=== PATIENT | male | born 1960 | race African-American/Black ===

== ENCOUNTER 2021-02-03 04:32 | Emergency (ER) | payer BC, SELFPAY ==
[2021-02-03 04:34] VITALS: BP 138/80; PULSE 62; RESP 16; TEMP 36.7; O2SAT 97; BMI 32.1
[2021-02-03 05:42] LABS: MANUAL DIFF FLAG NO
[2021-02-03 05:43] LABS: Basophils Percent Auto 0.6 % (0-2); Eosinophils Absolute Auto 0.2 X10*3/uL (0.0-0.4); Hematocrit 41.5 % (42-52); Hemoglobin 12.8 g/dl (14.0-18.0); Lymphocytes Absolute Auto 2.4 X10*3/uL (1.2-4.9); Lymphocytes Percent Auto 51.3 % (20-40); Mean Corpuscular HGB Conc 30.8 g/dl (31.0-36.0); Mean Corpuscular Hemoglobin 22.9 pg (27.0-33.0); Mean Corpuscular Volume 74.1 fL (80-98); Mean Platelet Volume 10.2 fL (9.4-12.4); Monocytes Absolute Auto 0.5 X10*3/uL (0.1-1.2); Monocytes Percent Auto 9.9 % (2-11); Neutrophils Absolute Auto 1.6 X10*3/uL (2.0-8.3); Neutrophils Percent Auto 34.2 % (45-73); Platelet Count 185 X10*3/uL (160-400); Red Cell Distribution Width 14.6 % (11.0-16.0); White Blood Count 4.8 X10*3/uL (4.8-10.8)
--- NOTE | 2021-02-03 05:45 | PC.NURSE ---
pt labs drawn with no complications. pt during this time states he now has numbness to the left foot. pt walks with a steady gait. denies chest pain or shortness of breath. pt is alert and orientedx3, skin pink warm and dry. palpable pulses to the left foot, foot is warm and pt is able to wiggle his toes. charge is aware of this.
[2021-02-03 05:57] LABS: INTERNATIONAL NORM RATIO 1.1 (0.9-1.1); Prothrombin Time 12.7 SEC (9.9-13.0)
[2021-02-03 06:05] LABS: Alanine Aminotransferase 17 U/L (0-40); Albumin Level 4.2 g/dL (3.5-5.0); Alkaline Phosphatase 85 U/L (39-117); Anion Gap 13 (12-20); Aspartate Amino Transferase 17 U/L (5-37); Bilirubin Total < 0.2 mg/dL (0.0-1.0); Blood Urea Nitrogen 12 mg/dL (9-16); Calcium 9.6 mg/dL (8.4-10.2); Carbon Dioxide 29 mmol/L (22-29); Chloride 103 mmol/L (96-108); Creatinine Clr Calc Pharmacy 93.1; Estimated Glomerular Filt Rate > 60; Glucose Random 104 mg/dL (60-115); Potassium 4.7 mmol/L (3.3-5.1); Sodium 140 mmol/L (135-145); Total Protein 7.9 g/dL (6.5-8.0)
[2021-02-03 06:32] LABS: D Dimer < 200 NG/ML
--- NOTE | 2021-02-03 06:53 | ED.EXTPRO ---
HPI - Extremity Problem General Chief complaint: Extremity Problem Stated complaint: R/O DVT Time Seen by Provider: 02/03/21 06:22 Source: patient Mode of arrival: ambulatory Limitations: no limitations History of Present Illness HPI Narrative: Patient with history of DVT on Eliquis was doing elliptical exercise few weeks ago for last 3 weeks complaining of increased pain in the left knee with swelling behind the knee no calf pain no shortness of breath no leg swelling Related Data Previous Rx's Medication Instructions Recorded tramadol 50 mg tablet 50 mg PO Q6H PRN #20 tab 02/03/21 Allergies Allergy/AdvReac Type Severity Reaction Status Date / Time No Known Allergies Allergy Verified 02/03/21 04:41 Review of Systems Review of Systems: Yes all other systems are reviewed and are negative [facility] Past Medical History Medical History Blood clotting disorder Social History Social History Advance Directives: No Advance Directives Information Provided: Yes Physical Exam Vital Signs: Vital Signs: Last Vital Signs Temp 98.0 F 02/03/21 04:34 Pulse 62 02/03/21 04:34 Resp 16 02/03/21 04:34 BP 138/80 02/03/21 04:34 Pulse Ox 97 02/03/21 04:34 Body Mass Index 32.1 Appearance: Alert. Oriented X3. No acute distress. Neck: Normal inspection. Neck supple. CVS: Normal heart rate and rhythm. Pulses normal. Respiratory: No respiratory distress. Equal air entry bilateral, Abdomen: Soft and nontender. Skin: Skin warm and dry. Normal skin color. Normal skin turgor. Extremities: No lower extremity edema. No calf tenderness, left knee: Diffuse tenderness with slight joint effusion crepitation and palpitation limited flexion to 90 degrees Neuro: Oriented X 3. MDM - Extremity (Nontraumatic) MDM Narrative Medical decision making narrative: Patient on Eliquis for DVT in left knee Charisma sign is negative no calf tenderness D-dimer negative clinically patient has left knee arthritis Romulo wrap was applied will discharge patient home on tramadol Lab Data Result diagrams: 02/03/21 05:38 02/03/21 05:38 Labs: Lab Results 02/03/21 02/03/21 02/03/21 Range/Units 05:38 05:38 05:38 WBC 4.8 (4.8-10.8) X10*3/uL RBC 5.60 (4.60-5.80) X10*6/uL Hgb 12.8 L (14.0-18.0) g/dl Hct 41.5 L (42-52) % MCV 74.1 L (80-98) fL MCH 22.9 L (27.0-33.0) pg MCHC 30.8 L (31.0-36.0) g/dl RDW 14.6 (11.0-16.0) % Plt Count 185 (160-400) X10*3/uL MPV 10.2 (9.4-12.4) fL Immature Gran % (Auto) 0.0 (0.0-0.4) % Neut % (Auto) 34.2 L (45-73) % Lymph % (Auto) 51.3 H (20-40) % Stanton % (Auto) 9.9 (2-11) % Eos % (Auto) 4.0 (0-4) % Baso % (Auto) 0.6 (0-2) % Lymph # (Auto) 2.4 (1.2-4.9) X10*3/uL Stanton # (Auto) 0.5 (0.1-1.2) X10*3/uL Eos # (Auto) 0.2 (0.0-0.4) X10*3/uL Baso # (Auto) 0.0 (0.0-0.2) X10*3/uL Abs Immat Gran (auto) 0.00 (0.00-0.03) X10*3/uL Absolute Neuts (auto) 1.6 L (2.0-8.3) X10*3/uL Absolute Nucleated RBC 0.000 (0.0-0.012) X10*3/uL Nucleated RBC % (auto) 0.0 (0.0-0.2) /100WBC PT 12.7 (9.9-13.0) SEC INR 1.1 (0.9-1.1) D-Dimer < 200 NG/ML Sodium 140 (135-145) mmol/L Potassium 4.7 (3.3-5.1) mmol/L Chloride 103 (96-108) mmol/L Carbon Dioxide 29 (22-29) mmol/L Anion Gap 13 (12-20) BUN 12 (9-16) mg/dL Creatinine 1.05 (0.5-1.4) mg/dL Estim Creat Clear Calc 93.1 Estimated GFR > 60 Random Glucose 104 (60-115) mg/dL Calcium 9.6 (8.4-10.2) mg/dL Total Bilirubin < 0.2 (0.0-1.0) mg/dL AST 17 (5-37) U/L ALT 17 (0-40) U/L Alkaline Phosphatase 85 (39-117) U/L Total Protein 7.9 (6.5-8.0) g/dL Albumin 4.2 (3.5-5.0) g/dL Discharge Plan Discharge Clinical Impression: Arthritis of knee, left Patient Disposition: Home, Self-Care Instructions: Osteoarthritis (ED) Additional Instructions: Rest to your left knee Wear knee brace/Romulo wrap Pain medication as prescribed Follow with PCP if not better Prescriptions: New tramadol 50 mg tablet 50 mg PO Q6H PRN (Reason: pain) Qty: 20 RF: 0
== END 2021-02-03 07:16 | disposition home or self-care (01) ==
PROVIDERS: Student in an Organized Health Care Education/Training Program; Emergency Provider Internal Medicine
DX: M17.12 Unilateral primary osteoarthritis, left knee (principal); R60.0 Localized edema; Z79.01 Long term (current) use of anticoagulants; Z79.899 Other long term (current) drug therapy
CPT/HCPCS: 36415; 80053; 85025; 85379; 85610; 99283

== ENCOUNTER 2021-03-25 10:50 | Emergency (ER) | payer BC, SELFPAY ==
--- NOTE | ~2021-03-25 | XR_ITS ---
EXAMINATION: XR LUMBOSACRAL SPINE CLINICAL INFORMATION: Low back pain. Mild urinary incontinence. Pre-MRI evaluation. COMPARISON: None TECHNIQUE: Three views of the lumbosacral spine. FINDINGS: There is normal lumbar segmentation with 5 nonrib-bearing lumbar vertebrae of normal height and normal lumbar lordosis. There is no lumbar vertebral compression, spondylolisthesis, destructive process, or erosive changes. Mild anterior vertebral spurring is present at L4 and L5. There is borderline degenerative disc change L4-L5. The SI joints and visualized sacrum are unremarkable. There is no metallic foreign body in the [id number]. Bowel gas is unremarkable. XR/XR lumbar spine 2-3V IMPRESSION: 1. No metallic foreign body. 2. No vertebral compression, spondylolisthesis, or destructive process.
--- NOTE | ~2021-03-25 | MR_ITS ---
MR LUMBAR SPINE WITHOUT IV CONTRAST CLINICAL INFORMATION: Back pain with urinary incontinence. COMPARISON: Lumbar spine radiographs 03/25/2021. TECHNIQUE: MRI of the lumbar spine was obtained using routine sequences without contrast. FINDINGS: There are 5 nonrib-bearing lumbar-type vertebral bodies. Lumbar alignment is normal. The vertebral body heights are maintained throughout the lumbar spine. There is mild chronic upper endplate height loss at T12 and L1. There is mild disc volume loss and there is disc desiccation at L3-L4 and L4-L5. Mild Modic type I endplate signal changes at L3-L4 and L4-L5. No additional bone marrow edema. No acute fractures. The conus terminates at the L1 level. Hypertrophic degenerative changes across the SI joints bilaterally. There is a fatty filum terminale. No significant extraspinal soft tissue findings. L1-L2: Disc contour is normal. No central canal stenosis and no foraminal stenosis. L2-L3: Disc contour is normal. No central canal stenosis and no foraminal stenosis. L3-L4: There is a far right lateral disc protrusion that results in moderate right-sided foraminal stenosis and mass effect on the extraforaminal right L3 nerve root. There is no central canal stenosis and there is no left foraminal stenosis. L4-L5: There is a shallow left paracentral disc protrusion that results in mass effect on the traversing left L5 nerve root within the left subarticular zone. Mild narrowing of the central canal. Mild bilateral foraminal encroachment. L5-S1: Diffuse annular disc bulges in part disc osteophyte and moderate bilateral facet arthropathy. There is no central canal stenosis. Mild to moderate bilateral foraminal stenosis with mild mass effect on the exiting L5 nerve roots MR/MR lumbar spine wo con IMPRESSION: - At L3-L4, a far right lateral disc protrusion results in moderate right-sided foraminal stenosis and mass effect on the extraforaminal right L3 nerve root. - At L4-L5, there is a shallow left paracentral disc protrusion that results in mass effect on the traversing left L5 nerve root within the left subarticular zone. - At L5-S1, spondylitic changes result in mild to moderate bilateral foraminal stenosis with mild mass effect on the exiting L5 nerve roots bilaterally. - There is no severe central canal stenosis within the lumbar spine.
[2021-03-25 11:52] VITALS: BP 149/93; PULSE 72; RESP 18; TEMP 36.8; O2SAT 99; BMI 32.8
[2021-03-25 12:42] LABS: Appearance Urine CLEAR; Color Urine YELLOW; Glucose Urine UA NEG (NEG); Leukocyte Esterase Urine NEG (NEG); Nitrite Urine NEG (NEG); PH 7.5 (5.0-8.0); Urine Blood NEG (NEG); Urine Ketones NEG (NEG); Urine Protein NEG (NEG-TRACE)
[2021-03-25] MEDS: traMADoL HCL 50 MG TABLET PO (14:03)
[2021-03-25] MEDS: predniSONE 20 MG TABLET 60 MG PO (14:03)
--- NOTE | 2021-03-25 14:19 | ED_ITS ---
HPI - General Adult General Chief complaint: Back Pain/Injury <OFELIA Doss - Last Filed: 03/25/21 17:17> Stated complaint: Lower back pain/incontinence <OFELIA Doss - Last Filed: 03/25/21 17:17> Time Seen by Provider: 03/25/21 12:50 <OFELIA Doss - Last Filed: 03/25/21 17:17> Source: patient <OFELIA Doss - Last Filed: 03/25/21 17:17> Mode of arrival: ambulatory <OFELIA Doss - Last Filed: 03/25/21 17:17> Limitations: no limitations <OFELIA Doss Last Filed: 03/25/21 17:17> History of Present Illness HPI narrative: 60-year-old male with history of chronic back pain arthritis presents to ED for worsening lower back pain for 1 week with some mild urinary incontinence the past 3 days. Patient denies any fever, chills, history of HIV, history of IV drug use, or being immunocompromised. Patient describe urinary incontinence sometime not knowing when he is about to pee and urinate on himself. Other times he has sensation and knows he is about to urinate but cannot reach the bathroom in time and then has dribbling on himself. Patient denies any abdominal pain, flank pain, fever, chills, dysuria, hematuria, nausea, vomiting, or testicular pain. <OFELIA Doss Last Filed: 03/25/21 17:17> Related Data Home medications: Previous Rx's Medication Instructions Recorded tramadol 50 mg tablet 50 mg PO Q6H PRN #20 tab 02/03/21 prednisone 20 mg tablet 60 mg PO DAILY 5 Days #15 tab 03/25/21 tramadol 50 mg tablet 50 mg PO TID PRN 3 Days #9 tab 03/25/21 <OFELIA Doss Last Filed: 03/25/21 17:17> Allergies/adverse reactions: Allergies Allergy/AdvReac Type Severity Reaction Status Date / Time No Known Allergies Allergy Verified 02/03/21 04:41 <OFELIA Doss Last Filed: 03/25/21 17:17> Review of Systems Review of Systems: Yes all other systems are reviewed and are negative <OFELIA Doss - Last Filed: 03/25/21 17:17> Constitutional: Constitutional: Reports as per HPI and Reports no additional constitutional complaints <OFELIA Doss - Last Filed: 03/25/21 17:17> Eyes: Eyes: Reports as per HPI and Reports no additional eye complaints <OFELIA Doss - Last Filed: 03/25/21 17:17> ENT: Reports system reviewed and no additional complaints, except as documented and Reports as per HPI <OFELIA Doss - Last Filed: 03/25/21 17:17> Cardiovascular: Cardiovascular: Reports as per HPI and Reports no additional cardiovascular complaints <OFELIA Doss - Last Filed: 03/25/21 17:17> Respiratory: Respiratory: Reports as per HPI and Reports no additional respiratory complaints <OFELIA Doss - Last Filed: 03/25/21 17:17> Gastrointestinal: Gastrointestinal: Reports as per HPI and Reports no additional gastrointestinal complaints <OFELIA Doss - Last Filed: 03/25/21 17:17> Genitourinary: Genitourinary: Reports no additional male genitourinary complaints, Reports as per HPI and Reports urinary incontinence (mild) <OFELIA Doss - Last Filed: 03/25/21 17:17> Musculoskeletal: Musculoskeletal: Reports no additional musculoskeletal complaints, Reports as per HPI and Reports back pain <OFELIA Doss - Last Filed: 03/25/21 17:17> Integumentary/Breasts: Skin/Breast: Reports system reviewed and no additional complaints, except as docu and Reports as per HPI <OFELIA Doss - Last Filed: 03/25/21 17:17> Neurologic: Reports system reviewed and no additional complaints, except as documented and Reports as per HPI <OFELIA Doss - Last Filed: 03/25/21 17:17> Psychiatric: Psychiatric: Reports no additional psychiatric complaints and Reports as per HPI <OFELIA Doss - Last Filed: 03/25/21 17:17> PMFSH Past Medical History Medical History: Medical History (Updated 03/25/21 @ 16:40 by OFELIA Doss) Blood clotting disorder HLD (hyperlipidemia) <OFELIA Doss - Last Filed: 03/25/21 17:17> Social History Social History: Social History Advance Directives: No Advance Directives Information Provided: No <OFELIA Doss - Last Filed: 03/25/21 17:17> Physical Exam Vital Signs: Vital Signs: Last Vital Signs Temp 98.4 F 03/25/21 16:00 Pulse 78 03/25/21 16:00 Resp 18 03/25/21 16:00 BP 146/70 H 03/25/21 16:00 Pulse Ox 98 03/25/21 16:00 Body Mass Index 32.8 <OFELIA Doss - Last Filed: 03/25/21 17:17> Vital Signs: Last Vital Signs Temp 98.4 F 03/25/21 16:00 Pulse 78 03/25/21 16:00 Resp 18 03/25/21 16:00 BP 146/70 H 03/25/21 16:00 Pulse Ox 98 03/25/21 16:00 Body Mass Index 32.8 <Guilherme Morrison MD - Last Filed: 03/25/21 16:35> Const: General: cooperative, healthy appearing, comfortable, no acute distress, well developed, alert, awake and Physically active; No acute distress <OFELIA Doss - Last Filed: 03/25/21 17:17> Orientation/consciousness: patient oriented x3 <OFELIA Doss - Last Filed: 03/25/21 17:17> HENMT: Head: Yes normal to inspection, Yes No palpable skull fracture present, Yes normocephalic, Yes atraumatic and No abrasion <OFELIA Doss - Last Filed: 03/25/21 17:17> Eyes: General: appearance normal, both eyes and all related structures <OFELIA Doss - Last Filed: 03/25/21 17:17> Neck: Neck: Yes normal visual inspection, Yes full ROM, Yes no lymphadenopathy, Yes no meningeal signs, Yes trachea midline, Yes supple, No anterior neck swelling and No tender <OFELIA Doss - Last Filed: 03/25/21 17:17> Chest: Chest palpation & inspection: normal inspection of the chest and normal palpation of entire chest wall <OFELIA Doss Last Filed: 03/25/21 17:17> Resp: Effort & Inspection: normal respiratory effort and able to speak in complete sentences <OFELIA Doss Last Filed: 03/25/21 17:17> Auscultation: clear to auscultation bilaterally <OFELIA Doss Last Filed: 03/25/21 17:17> Cardio: Jugular venous distension: no JVD <OFELIA Doss Last Filed: 03/25/21 17:17> Heart sounds: S1 normal heart sound present and S2 normal heart sound present <OFELIA Doss Last Filed: 03/25/21 17:17> GI: Inspection: Yes normal to inspection and No abdominal wall ecchymosis <OFELIA Doss Last Filed: 03/25/21 17:17> Palpation (GI): Soft to palpation, not firm, nontender, no guarding and not rigid <OFELIA Doss - Last Filed: 03/25/21 17:17> : General: Yes no CVA tenderness <OFELIA Doss Last Filed: 03/25/21 17:17> Back/Spine/Pelvis: Other: Rectal exam positive for good anal tone 1 finger placed in the rectum. Negative for saddle anesthesia. Patient has sensation in perineum, testicles, and pubic area. <OFELIA Doss Last Filed: 03/25/21 17:17> Back: no CVA tenderness and back tenderness (Positive for lumbar tenderness on palpation.) <OFELIA Dsos - Last Filed: 03/25/21 17:17> Skin: General skin exam: no rashes or lesions noted and elasticity normal <OFELIA Doss Last Filed: 03/25/21 17:17> Neuro: General: patient oriented x3, gait normal, no meningeal signs and CN's II-XI intact bilaterally <OFELIA Doss Last Filed: 03/25/21 17:17> Cranial nerves: Yes CN's II-XII intact bilaterally <OFELIA Doss Last Filed: 03/25/21 17:17> Extrem: General: Yes normal to inspection and Yes full ROM <OFELIA Doss - Last Filed: 03/25/21 17:17> Psych: Appearance: grossly normal, well kempt and not disheveled <OFELIA Doss - Last Filed: 03/25/21 17:17> Course Course Course Narrative: Pain meds ordered for patient. Lumbar x-ray ordered. Physical exam unlikely cord compression but due to patient stated urinary continence for the past 3 days with worsening back pain for the past week patient will have MRI after x-ray. Not suspecting epidural abscess. Patient denies any history of IV drug use, HIV, or any immunocompromised state. Patient vital signs are normal and negative for signs of infection. <OFELIA Doss - Last Filed: 03/25/21 17:17> Reevaluation(s) Reevaluation #1: Lumbar x-ray shows some denies arthritis waiting for MRI of lumbar spine. <OFELIA Doss - Last Filed: 03/25/21 17:17> Time: 14:26 <OFELIA Doss - Last Filed: 03/25/21 17:17> Reevaluation #2: Discussed with OFELIA Page agree with plan and reviewed MRI <Guilherme Morrison MD - Last Filed: 03/25/21 16:35> Time: 16:35 <Guilherme Morrison MD - Last Filed: 03/25/21 16:35> Reevaluation #3: MRI negative for cord compression. MRI just shows disc herniations pressing on a nerve. Patient states pain improved with tramadol and steroids. Patient given copy of MRI report to follow up with primary care provider to see patient should be referred to physical therapy, pain management, or spinal surgeon. Patient walked around the ER. Patient has normal gait. Back pain mostly when he sits still for long time. <OFELIA Doss - Last Filed: 03/25/21 17:17> Time: 16:38 <OFELIA Doss - Last Filed: 03/25/21 17:17> Medical Decision Making MDM Narrative Medical decision making narrative: Lumbar disc herniation <OFELIA Doss - Last Filed: 03/25/21 17:17> Lab Data Labs: Lab Results 03/25/21 Range/Units 12:23 Urine Color YELLOW Urine Appearance CLEAR Urine pH 7.5 (5.0-8.0) Ur Specific [place] 1.010 (1.005-1.025) Urine Protein NEG (NEG-TRACE) MG/DL Urine Glucose (UA) NEG (NEG) MG/DL Urine Ketones NEG (NEG) MG/DL Urine Blood NEG (NEG) Urine Nitrite NEG (NEG) Ur Leukocyte Esterase NEG (NEG) <OFELIA Doss - Last Filed: 03/25/21 17:17> Lab Results 03/25/21 Range/Units 12:23 Urine Color YELLOW Urine Appearance CLEAR Urine pH 7.5 (5.0-8.0) Ur Specific [place] 1.010 (1.005-1.025) Urine Protein NEG (NEG-TRACE) MG/DL Urine Glucose (UA) NEG (NEG) MG/DL Urine Ketones NEG (NEG) MG/DL Urine Blood NEG (NEG) Urine Nitrite NEG (NEG) Ur Leukocyte Esterase NEG (NEG) <Guilherme Morrison MD - Last Filed: 03/25/21 16:35> Discharge Plan Discharge Clinical Impression: Herniated lumbar intervertebral disc, Lumbar radiculopathy <OFELIA Doss - Last Filed: 03/25/21 17:17> Patient Disposition: Home, Self-Care <OFELIA Doss - Last Filed: 03/25/21 17:17> Instructions: Lumbar Disc Herniation (ED), Lumbar Radiculopathy (ED) <OFELIA Doss - Last Filed: 03/25/21 17:17> Additional Instructions: The MRI came back negative for cord compression. MRI does shows lumbar disc herniations pressing on your nerves which is causing the pain. Return to the ED for any abdominal pain, nausea, vomiting, fever, chills, paralysis of lower extremities, worsening urinary incontinence, bowel incontinence, inability to walk, tingling in the extremities, or any other concerning symptoms. Please show a primary care provider MRI report. <OFELIA Doss - Last Filed: 03/25/21 17:17> Prescriptions: New tramadol 50 mg tablet 50 mg PO TID PRN (Reason: pain) 3 Days Qty: 9 RF: 0 prednisone 20 mg tablet 60 mg PO DAILY 5 Days Qty: 15 RF: 0 No Action tramadol 50 mg tablet 50 mg PO Q6H PRN (Reason: pain) Qty: 20 RF: 0 <OFELIA Doss - Last Filed: 03/25/21 17:17> Stand Alone Forms: Work/School Release <OFELIA Doss - Last Filed: 03/25/21 17:17> Interventions: ED Discharge Assessment Last Done: 03/25/21 16:54 <OFELIA Dsos - Last Filed: 03/25/21 17:17> Discharge Date/Time: 03/25/21 16:55 <OFELIA Doss - Last Filed: 03/25/21 17:17> Print Language: Marshallese <OFELIA Doss - Last Filed: 03/25/21 17:17>
--- NOTE | 2021-03-25 14:24 | PC.NURSE ---
ASSISTED PA WITH RECTAL EXAM. PT TOLERATED PROCEDURE WELL.
[2021-03-25 15:36] VITALS: RESP 18
[2021-03-25 16:00] VITALS: BP 146/70; PULSE 78; RESP 18; TEMP 36.9; O2SAT 98
== END 2021-03-25 16:55 | disposition home or self-care (01) ==
PROVIDERS: Emergency Provider Emergency Medicine
DX: M51.16 Intervertebral disc disorders with radiculopathy, lumbar region (principal); M54.50 Low back pain, unspecified
CPT/HCPCS: 72100; 72148; 81003; 99284; 99285

== ENCOUNTER 2025-01-12 09:09 | Outpatient (AMB) | payer BC, SELFPAY ==
--- NOTE | 2025-01-12 09:40 | MHC.OFFVIS ---
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 He denies smoking and is prediabetic, with no history of hypertension. 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 It is noted more so in right leg. Patient denies any previous venous surgery or injections. Patient denies any history of has a prior history of DVT on the right lower extremity dating back to 2003. He also has a family history of clotting disorders. He is being maintained on Eliquis Patient denies any history of phlebitis. Trial of compression includes - [id number] They now present for vascular evaluation regarding their varicose veins. [facility] Medical History HLD (hyperlipidemia) Blood clotting disorder Review of Systems Const Reports as per HPI ENT Reports no additional complaints Card Denies chest pain, Denies chest pain at rest and Denies chest pain with activity Resp Denies chest congestion and Denies cough GI Reports no additional complaints Musc Details: pain over varicosities, aching of lower extremities, swelling, cramping, heaviness and tiredness, itching Denies abnormal gait Skin/Breast Reports pruritus and Denies wounds Neuro Reports no additional complaints and Denies abnormal gait Psych Denies no additional complaints Physical Exam Vital Signs: BMI result Body Mass Index 32.1 Const General: cooperative, healthy appearing and comfortable Orientation/consciousness: oriented to person, oriented to place and oriented to time Neck Carotids: no bruits Chest Chest palpation & inspection: normal inspection of the chest and normal palpation of entire chest wall Resp Effort & Inspection: normal respiratory effort and able to speak in complete sentences Cardio Rate: regular rate Heart sounds: S1 normal heart sound present and S2 normal heart sound present Peripheral pulses: Peripheral pulses 2+ throughout GI Inspection: Yes normal to inspection Skin Other: +2 edema, large rope-like varicosities greater than 4 mm CEAP Classification C4 - skin color changes Ep - Etiology Primary As - superficial veins P - reflux General skin exam: dry skin Neuro General: oriented to person, oriented to place and oriented to time Extrem Right lower extremity: full ROM, normal capillary refill and edema Left lower extremity: full ROM, normal capillary refill and edema Psych Mental Status: mental status grossly normal Assessment & Plan Assessment & Plan (1) Varicose veins of right lower extremity with inflammation: Code(s): I83.11 - Varicose veins of right lower extremity with inflammation Category: Medical Plan: In short, the patient has evidence of venous insufficiency. I have discussed the pathophysiology with the patient. In addition I have provided informational material regarding venous disease to the patient. We have discussed conservative measures including compression, elevation, and exercise. I have also provided a handout regarding appropriate use of compression stockings and where to purchase good compression stockings as well. I have taken the liberty of ordering venous insufficiency testing with the patient. They will follow up with me after testing. The patient had an opportunity to ask questions regarding the treatment plan. All questions were answered. Imaging studies, laboratory studies and physical exam results were discussed and reviewed in detail. No major barriers to understanding were identified. The patient expressed understanding and agreement with the above treatment plan. The patient is aware they should contact our office by phone for worsening of the current condition or the appearance of new symptoms. Thank you for allowing me to participate in the vascular care of this patient. If you have any questions or concerns regarding the treatment for the above condition please do not hesitate to contact me. The office telephone contact is [phone]. This note is constructed using voice recognition software. While every effort has been made to ensure accuracy, ergonomic specialist errors may have been included. Thank you for allowing me to participate in the care of your patient. Yours sincerely, Jorge Martin MD, FACS, R.P.V.I. Plan See op note Orders: Orders US venous duplex LE BI Today I83.11 - Varicose veins of right lower extremity with inflammation Coding Level of Care Code New Pt Level 4 (03190) Complex EM visit Add On G2211 Diagnoses Varicose veins of right lower extremity with inflammation I83.11
[2025-01-12 09:41] VITALS: BMI 32.1
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
--- OUTSIDE RECORDS SUMMARY | 2025-01-12 10:31 | XMS_ITS ---
Author Name [facility] Organization Unknown Encounters Encounter Type Encounter Reason Primary Diagnosis Location Date Ambulatory [facility] 01/03/2025 Ambulatory [facility] 10/28/2024 Ambulatory [facility] 07/27/2024 Ambulatory [facility] 06/30/2024 Ambulatory [facility] 06/30/2024 Ambulatory [facility] 06/23/2024 Ambulatory [facility] 06/18/2024 Ambulatory [facility] 06/18/2024 Ambulatory [facility] 06/18/2024 Ambulatory [facility] 06/18/2024 Ambulatory [facility] 06/18/2024 Ambulatory [facility] 06/18/2024 Ambulatory [facility] 06/18/2024 Ambulatory [facility] 06/18/2024 Ambulatory [facility] 06/18/2024 Ambulatory [facility] 06/16/2024 Ambulatory [facility] 06/16/2024 Ambulatory [facility] 06/16/2024 Ambulatory [facility] 06/16/2024 Care Team Organization Name Specialty Phone Email Start Date End [facility] 08/02/2024 [facility] 03/18/2024 025 [facility] Yumiko Ramos Primary Care 03/11/2022 12/21/2023
== END 2025-01-12 09:56 | disposition home or self-care (01) ==
LOC: HO.HVS 09:10
PROVIDERS: Visit Provider Surgery Vascular Surgery
DX: I83.11 Varicose veins of right lower extremity with inflammation (principal)
CPT/HCPCS: 99204

== ENCOUNTER 2025-02-27 08:17 | Outpatient (REF) | payer BC, SELFPAY ==
--- NOTE | ~2025-02-27 | US_ITS ---
EXAMINATION: US LOWER EXTREMITY VENOUS (REFLUX EXAM), BILATERAL CLINICAL INFORMATION: I 83.11. Varices. COMPARISON: None. TECHNIQUE: Color flow triplex imaging and compression Doppler was performed to evaluate both the deep and the superficial systems bilaterally. To evaluate the superficial system, the examination was performed in the upright position. Color-flow Doppler ultrasound and compression ultrasound were utilized. In addition, maneuvers were utilized to demonstrate reflux. FINDINGS: 1. DEEP VENOUS ULTRASOUND OF THE RIGHT LOWER EXTREMITY: Common Femoral Vein: Compressible, normal respiratory variation and augmented flow. Femoral Vein: Compressible, normal color flow and augmentation. Popliteal Vein: Compressible, normal augmentation. Deep Reflux: There is no evidence of reflux in the deep system in either the common femoral vein, superficial femoral or the popliteal vein. There is no evidence of a Rinaldi's cyst. 2. SUPERFICIAL ULTRASOUND WITH DOPPLER OF RIGHT LOWER EXTREMITY: GREAT SAPHENOUS VEIN: Saphenofemoral Junction: 0.8 cm; Reflux: 0 ms Proximal Thigh: 0.5 cm; Reflux: 0 ms Mid Thigh: 0.5 cm; Reflux: 0 ms Distal Thigh: 0.4 cm; Reflux: 0 ms At Knee: 0.3 cm; Reflux: 0 ms Proximal Calf: 0.3 cm; Reflux: 0 ms Mid Calf: 0.2 cm; Reflux: 0 ms Distal Calf: 0.2 cm; Reflux: 0 ms DUPLICATED MEDIAL GREAT SAPHENOUS VEIN: Diameter: None imaged Reflux: NA DUPLICATED LATERAL GREAT SAPHENOUS VEIN: Diameter: None imaged Reflux: NA SMALL SAPHENOUS VEIN: Saphenopopliteal Junction: 0.3 cm; Reflux: 0 ms Proximal: 0.2 cm; Reflux: 0 ms Distal: 0.3 cm; Reflux: 0 ms VEIN OF GIACOMINI: Size: 0.3 cm. Reflux: NA PERFORATORS: Location: Small saphenous vein, mid segment. Proximal, mid and distal calf. Size: 0.1-0.3 cm. Reflux: NA VARICOSITIES: Location: Small saphenous vein mid segment. Proximal calf. Size: 0.3-0.4 cm. Reflux: NA 3. DEEP VENOUS ULTRASOUND OF THE LEFT LOWER EXTREMITY: Common Femoral Vein: Compressible, normal respiratory variation and augmented flow. Femoral Vein: Compressible, normal color flow and augmentation. Popliteal Vein: Compressible, normal augmentation. Deep Reflux: There is no evidence of reflux in the deep system in either the common femoral vein, superficial femoral or the popliteal vein. There is no evidence of a Rinaldi's cyst. 4. SUPERFICIAL ULTRASOUND WITH DOPPLER OF LEFT LOWER EXTREMITY: GREAT SAPHENOUS VEIN: Saphenofemoral Junction: 0.8 cm; Reflux: 0 ms Proximal Thigh: 0.3 cm; Reflux: 0 ms Mid Thigh: 0.2 cm; Reflux: 0 ms Distal Thigh: 0.3 cm; Reflux: 0 ms At Knee: 0.3 cm; Reflux: 0 ms Proximal Calf: 0.13 cm; Reflux: 0 ms Mid Calf: 0.08 cm; Reflux: 0 ms Distal Calf: 0.1 cm; Reflux: 0 ms DUPLICATED MEDIAL GREAT SAPHENOUS VEIN: Diameter: None imaged Reflux: NA DUPLICATED LATERAL GREAT SAPHENOUS VEIN: Diameter: None imaged. Reflux: NA SMALL SAPHENOUS VEIN: Saphenopopliteal Junction: 0.3 cm; Reflux: 0 ms Proximal: 0.2 cm; Reflux: 0 ms Distal: 0.2 cm; Reflux: 0 ms VEIN OF GIACOMINI: Size: NA Reflux: NA PERFORATORS: Location: Proximal and Mid calf. Distal thigh. Size: 0.1-0.2 cm. Reflux: NA VARICOSITIES: Location: Proximal calf. Size: 0.3-0.4 cm. Reflux: NA US/US venous insuf bilat IMPRESSION: Right: No venous insufficiency. Perforators and varices without reflux. Left: No venous insufficiency. Perforators and varices without reflux. Electronically signed by: Esteban Alegria MD 02/27/2025 10:11 AM EDT
== END 2025-02-27 08:18 | disposition home or self-care (01) ==
LOC: HO.US 08:17
PROVIDERS: PCP Internal Medicine; Visit Provider Surgery Vascular Surgery
DX: I83.11 Varicose veins of right lower extremity with inflammation (principal)
CPT/HCPCS: 93970

== ENCOUNTER → 2025-02-27 08:19 | Outpatient (BNV) | payer BC, SELFPAY | PROVIDERS: PCP Internal Medicine; Visit Provider Radiology Diagnostic Radiology | DX: I83.11 Varicose veins of right lower extremity with inflammation (principal) | CPT/HCPCS: 93970 ==